=== PATIENT | female | born 1970 | race Caucasian/White ===

== ENCOUNTER → 2017-07-23 | Outpatient (CLI) | payer OTHER | LOC: FIMAGING 12:54 | PROVIDERS: ATTEND Physical Medicine & Rehabilitation | DX: M54.2 Cervicalgia (principal); R20.2 Paresthesia of skin; M50.30 Other cervical disc degeneration, unspecified cervical region; R93.8 Abnormal findings on diagnostic imaging of other specified body structures; M50.222 Other cervical disc displacement at C5-C6 level; V89.9XXS Person injured in unspecified vehicle accident, sequela ==